=== PATIENT | male | born 1995 | race African-American/Black ===

== ENCOUNTER 2017-03-30 17:37 | Emergency (ER) | payer BC ==
[~2017-03-30] VITALS: Ht 172.7 cm; Wt 113.6 kg
[2017-03-30 17:39] VITALS: TEMP 98.5
[2017-03-30 18:29] VITALS: BP 138/73; PULSE 74
== END 2017-03-30 18:29 | disposition home or self-care (01) ==
LOC: COL.ER 17:37
DX: S83.91XA Sprain of unspecified site of right knee, initial encounter (principal); X50.1XXA Overexertion from prolonged static or awkward postures, initial encounter; Y93.67 Activity, basketball

== ENCOUNTER 2017-05-07 11:09 | Emergency (ER) | payer BC ==
[~2017-05-07] VITALS: Ht 172.7 cm; Wt 123.6 kg
[2017-05-07 11:11] VITALS: BP 128/76
[2017-05-07] MEDS ORDERED: PROAIR HFA0.09 MG/AC IH ×2 (11:13→12:15)
[2017-05-07] MEDS ORDERED: TAMIFLU 75MG75 MG PO (12:15)
[2017-05-07 12:16] VITALS: TEMP 101.1
[2017-05-07 12:30] VITALS: PULSE 104
== END 2017-05-07 12:31 | disposition home or self-care (01) ==
LOC: COL.ER 11:09
DX: J10.1 Influenza due to other identified influenza virus with other respiratory manifestations (principal); J45.909 Unspecified asthma, uncomplicated

== ENCOUNTER 2017-11-13 17:00 | Emergency (ER) | payer BC ==
[~2017-11-13] VITALS: Ht 172.7 cm; Wt 113.6 kg
[~2017-11-13 17:00] MED LIST: PROAIR HFA0.09 MG/AC IH; TAMIFLU 75MG75 MG PO
[2017-11-13 17:23] VITALS: BP 124/67; TEMP 98.2
[2017-11-13 20:44] LABS: BASO % 0.2 % (0.0-2.0); EOS # 0.3 (0.0-0.7); EOS % 2.5 % (0-4.0); GRAN # 6.3 (1.4-6.5); GRAN % 62.6 % (42.2-75.2); HEMATOCRIT 47.7 % (42.0-52.0); HEMOGLOBIN 15.9 g/dl (13.5-18.0); LYMPH # 2.6 (1.2-3.4); LYMPH % 25.9 % (20.0-51.0); MEAN CELL VOLUME 91 fl (80.0-100.0); MEAN CORPUSCULAR HEMOGLOBIN 30 pg (27.0-31.0); MEAN CORPUSCULAR HGB CONC 33 g/dl (33.0-37.0); MEAN PLATELET VOLUME 10.1 fl (7.4-10.4); MONO # 0.9 (0.1-0.6); MONO % 8.6 % (1.7-9.3); PLATELET COUNT 277 K/mm3 (130-400); RED BLOOD COUNT 5.24 M/mm3 (4.20-5.60); REDCELL DISTRIBUTION WIDTH-CV 12.1 % (11.5-14.5)
[2017-11-13 20:48] LABS: ALBUMIN 4.5 gm/dL (3.5-5.0); BILIRUBIN,TOTAL 0.7 mg/dL (0.0-1.0); CALCIUM 9.3 mg/dL (8.4-10.2); CREATININE, serum 1.1 mg/dL (0.66-1.25); POTASSIUM 3.6 mmol/L (3.4-5.0); TOTAL PROTEIN 8.4 gm/dL (6.4-8.2)
[2017-11-13 21:18] LABS: THYROID STIMULATING HORMONE 1.13 uIU/mL (0.465-4.680)
[2017-11-13] MEDS ORDERED: ZITHROMAX Z PA250 MG PO (21:24)
[2017-11-13] MEDS ORDERED: VENTOLIN0.09 MG IH (21:30)
[2017-11-13 21:46] VITALS: PULSE 66
== END 2017-11-13 21:44 | disposition home or self-care (01) ==
LOC: COL.ER 17:00
PROVIDERS: Physician Assistant
DX: J18.9 Pneumonia, unspecified organism (principal); J45.909 Unspecified asthma, uncomplicated

== ENCOUNTER 2018-01-02 21:45 | Emergency (ER) | payer BC ==
[~2018-01-02] VITALS: Ht 172.7 cm; Wt 113.6 kg
[~2018-01-02 21:45] MED LIST changes: +VENTOLIN0.09 MG IH; +ZITHROMAX Z PA250 MG PO
[2018-01-02 21:51] VITALS: TEMP 98.9
[2018-01-02 22:38] VITALS: BP 115/68
[2018-01-02 23:03] LABS: BASO % 0.3 % (0.0-2.0); EOS # 0.5 (0.0-0.7); EOS % 4.8 % (0-4.0); GRAN # 5.5 (1.4-6.5); GRAN % 59.1 % (42.2-75.2); LYMPH # 2.2 (1.2-3.4); LYMPH % 23.7 % (20.0-51.0); MEAN CELL VOLUME 97 fl (80.0-100.0); MEAN CORPUSCULAR HGB CONC 33 g/dl (33.0-37.0); MEAN PLATELET VOLUME 9.1 fl (7.4-10.4); MONO # 1.1 (0.1-0.6); MONO % 11.8 % (1.7-9.3); PLATELET COUNT 230 K/mm3 (130-400); RED BLOOD COUNT 2.82 M/mm3 (4.20-5.60); REDCELL DISTRIBUTION WIDTH-CV 14.2 % (11.5-14.5)
[2018-01-02 23:05] LABS: HEMATOCRIT 27.4 % (42.0-52.0); HEMOGLOBIN 9.1 g/dl (13.5-18.0); MEAN CORPUSCULAR HEMOGLOBIN 32 pg (27.0-31.0)
[2018-01-02 23:12] LABS: ALBUMIN 3.6 gm/dL (3.5-5.0); BILIRUBIN,TOTAL 1.4 mg/dL (0.0-1.0); CALCIUM 8.5 mg/dL (8.4-10.2); CREATININE, serum 0.99 mg/dL (0.66-1.25); POTASSIUM 3.6 mmol/L (3.4-5.0); TOTAL PROTEIN 6.9 gm/dL (6.4-8.2)
[2018-01-03 00:19] LABS: INR 1.2 (0.8-3.0); PROTHROMBIN TIME 13.6 SECONDS (9.7-12.8)
[2018-01-03 01:58] VITALS: PULSE 88
== END 2018-01-03 01:58 | disposition home or self-care (01) ==
LOC: COL.ER 21:45
PROVIDERS: Emergency Medicine
DX: D64.9 Anemia, unspecified (principal); R42 Dizziness and giddiness; J45.909 Unspecified asthma, uncomplicated

== ENCOUNTER 2018-01-07 22:59 | Emergency (ER) | payer BC ==
[~2018-01-07] VITALS: Ht 172.7 cm; Wt 113.6 kg
[2018-01-07 23:08] VITALS: TEMP 98.6
[2018-01-07] MEDS ORDERED: NATURAL IRON65 MG (23:15)
[2018-01-07 23:52] LABS: BASO % 0.2 % (0.0-2.0); EOS # 0.1 (0.0-0.7); GRAN % 80.7 % (42.2-75.2); HEMOGLOBIN 11.5 g/dl (13.5-18.0); LYMPH # 1.6 (1.2-3.4); LYMPH % 11.3 % (20.0-51.0); MEAN CELL VOLUME 96 fl (80.0-100.0); MEAN CORPUSCULAR HEMOGLOBIN 31 pg (27.0-31.0); MEAN CORPUSCULAR HGB CONC 33 g/dl (33.0-37.0); MONO # 0.9 (0.1-0.6); MONO % 6.4 % (1.7-9.3); PLATELET COUNT 327 K/mm3 (130-400); RED BLOOD COUNT 3.66 M/mm3 (4.20-5.60); REDCELL DISTRIBUTION WIDTH-CV 13.6 % (11.5-14.5)
[2018-01-08 00:03] LABS: ALBUMIN 3.8 gm/dL (3.5-5.0); BILIRUBIN,TOTAL 0.5 mg/dL (0.0-1.0); CALCIUM 9.3 mg/dL (8.4-10.2); CREATININE, serum 1.16 mg/dL (0.66-1.25); POTASSIUM 3.7 mmol/L (3.4-5.0); TOTAL PROTEIN 7.2 gm/dL (6.4-8.2)
[2018-01-08] MEDS ORDERED: PROTONIX 40MG T40 MG PO (02:37)
[2018-01-08] MEDS ORDERED: ZOFRAN ODT4 MG PO (02:37)
[2018-01-08] MEDS ORDERED: CARAFATE 1GM1 G PO (02:37)
[2018-01-08 02:50] VITALS: BP 116/73; PULSE 82
== END 2018-01-08 02:55 | disposition home or self-care (01) ==
LOC: COL.ER 22:59
PROVIDERS: Emergency Medicine
DX: K29.70 Gastritis, unspecified, without bleeding (principal); D64.9 Anemia, unspecified
CPT/HCPCS: C9113; J2405; J7030; Q9967

== ENCOUNTER 2018-01-11 15:47 | Emergency (ER) | payer BC ==
[~2018-01-11] VITALS: Ht 172.7 cm; Wt 110.5 kg
[~2018-01-11 15:47] MED LIST changes: +CARAFATE 1GM1 G PO; +NATURAL IRON65 MG; +PROTONIX 40MG T40 MG PO; +ZOFRAN ODT4 MG PO
[2018-01-11 15:56] VITALS: TEMP 98.3
[2018-01-11 16:31] LABS: BASO % 0.3 % (0.0-2.0); EOS # 0.2 (0.0-0.7); EOS % 1.7 % (0-4.0); GRAN # 7.2 (1.4-6.5); GRAN % 69.3 % (42.2-75.2); HEMATOCRIT 38.5 % (42.0-52.0); HEMOGLOBIN 12.7 g/dl (13.5-18.0); LYMPH % 19.3 % (20.0-51.0); MEAN CELL VOLUME 95 fl (80.0-100.0); MEAN CORPUSCULAR HEMOGLOBIN 31 pg (27.0-31.0); MEAN CORPUSCULAR HGB CONC 33 g/dl (33.0-37.0); MONO # 0.9 (0.1-0.6); PLATELET COUNT 323 K/mm3 (130-400); RED BLOOD COUNT 4.06 M/mm3 (4.20-5.60); REDCELL DISTRIBUTION WIDTH-CV 13.2 % (11.5-14.5)
[2018-01-11 16:43] LABS: ALBUMIN 4.1 gm/dL (3.5-5.0); BILIRUBIN,TOTAL 0.4 mg/dL (0.0-1.0); C-REACTIVE PROTEIN 0.6 mg/dL (0.0-0.9); CALCIUM 9.1 mg/dL (8.4-10.2); CREATININE, serum 1.08 mg/dL (0.66-1.25); POTASSIUM 3.8 mmol/L (3.4-5.0)
[2018-01-11 16:51] LABS: COLLECTION METHOD CLEAN CATCH
[2018-01-11 16:58] LABS: MUCOUS Present /lpf; PH 7 (5-8); SQUAMOUS EPITHELIAL None Seen /hpf; URINE APPEARANCE Clear; URINE BACTERIA Rare /hpf; URINE BILIRUBIN Negative (NEGATIVE); URINE BLOOD Negative (NEGATIVE); URINE COLOR Yellow; URINE GLUCOSE Negative (NEGATIVE); URINE KETONE Negative (NEGATIVE); URINE LEUKOCYTE ESTERASE Negative (NEGATIVE); URINE NITRATE Negative (NEGATIVE); URINE PROTEIN(semi-quant) 1+ (NEGATIVE); URINE RBC 0-2 /hpf
[2018-01-11 18:04] VITALS: BP 108/52
[2018-01-11] MEDS ORDERED: NORCO 325 MG-51 TAB PO (19:41)
[2018-01-11] MEDS ORDERED: PHENERGAN 25 TA25 MG PO (19:41)
[2018-01-11 20:05] VITALS: PULSE 90
== END 2018-01-11 20:05 | disposition home or self-care (01) ==
LOC: COL.ER 15:47
PROVIDERS: Emergency Medicine
DX: R10.13 Epigastric pain (principal)
CPT/HCPCS: C9113; J2550; J7030

== ENCOUNTER 2018-01-21 17:35 | Emergency (ER) | payer BC ==
[~2018-01-21] VITALS: Ht 172.7 cm; Wt 109.1 kg
[~2018-01-21 17:35] MED LIST changes: +NORCO 325 MG-51 TAB PO; +PHENERGAN 25 TA25 MG PO
[2018-01-21 17:44] VITALS: TEMP 98.7
[2018-01-21 18:21] LABS: COLLECTION METHOD CLEAN CATCH
[2018-01-21 18:23] LABS: BASO % 0.1 % (0.0-2.0); EOS # 0.2 (0.0-0.7); EOS % 1.7 % (0-4.0); GRAN # 8.9 (1.4-6.5); GRAN % 74.3 % (42.2-75.2); HEMATOCRIT 43.6 % (42.0-52.0); LYMPH # 1.9 (1.2-3.4); LYMPH % 15.6 % (20.0-51.0); MEAN CELL VOLUME 96 fl (80.0-100.0); MEAN CORPUSCULAR HEMOGLOBIN 31 pg (27.0-31.0); MEAN CORPUSCULAR HGB CONC 32 g/dl (33.0-37.0); MEAN PLATELET VOLUME 9.2 fl (7.4-10.4); MONO % 7.9 % (1.7-9.3); PLATELET COUNT 317 K/mm3 (130-400); RED BLOOD COUNT 4.54 M/mm3 (4.20-5.60); REDCELL DISTRIBUTION WIDTH-CV 12.4 % (11.5-14.5)
[2018-01-21 18:34] LABS: ALANINE AMINOTRANSFERASE 46 U/L (21-72); ALKALINE PHOSPHATASE 62 U/L (50-136); ANION GAP 7 mmol/L (7-16); AST,SGOT 28 U/L (15-37); BILIRUBIN,TOTAL 0.2 mg/dL (0.0-1.0); BLOOD UREA NITROGEN 13 mg/dL (9-20); CALCIUM 9.1 mg/dL (8.4-10.2); CARBON DIOXIDE 28 mmol/L (22-30); CHLORIDE 104 mmol/L (98-107); CREATININE, serum 1.11 mg/dL (0.66-1.25); GLUCOSE 101 mg/dL (74-106); POTASSIUM 4.1 mmol/L (3.4-5.0); SODIUM 139 mmol/L (137-145); TOTAL PROTEIN 7.7 gm/dL (6.4-8.2)
[2018-01-21 18:36] LABS: PH 7 (5-8); SQUAMOUS EPITHELIAL 0-2 /hpf; URINE APPEARANCE Clear; URINE BACTERIA None Seen /hpf; URINE BILIRUBIN Negative (NEGATIVE); URINE BLOOD Negative (NEGATIVE); URINE COLOR Yellow; URINE GLUCOSE Negative (NEGATIVE); URINE KETONE Negative (NEGATIVE); URINE LEUKOCYTE ESTERASE Negative (NEGATIVE); URINE NITRATE Negative (NEGATIVE); URINE PROTEIN(semi-quant) Negative (NEGATIVE); URINE RBC 0-2 /hpf; URINE UROBILINOGEN Negative (NEGATIVE)
[2018-01-21 18:39] LABS: TRICYCLIC ANTIDEPRESS URINE NEGATIVE
[2018-01-21 18:40] LABS: ACETAMINOPHEN < 10 ug/mL (10-30); ALCOHOL(ethanol),MEDICAL < 10 mg/dL; SALICYLATE < 1.0 mg/dL
[2018-01-22 02:15] VITALS: BP 148/72; PULSE 87
== END 2018-01-22 02:16 | disposition home or self-care (01) ==
LOC: COL.ER 17:35
PROVIDERS: Physician Assistant
DX: R45.851 Suicidal ideations (principal); F32.9 Major depressive disorder, single episode, unspecified; F41.9 Anxiety disorder, unspecified; F12.90 Cannabis use, unspecified, uncomplicated

== ENCOUNTER 2018-01-24 11:01 | Emergency (ER) | payer BC ==
[~2018-01-24] VITALS: Ht 172.7 cm; Wt 113.6 kg
[2018-01-24 11:03] VITALS: TEMP 98.8
[2018-01-24] MEDS ORDERED: ZOLOFT 25MG25 MG PO (11:17)
[2018-01-24 11:26] LABS: BASO % 0.3 % (0.0-2.0); EOS # 0.2 (0.0-0.7); EOS % 2.9 % (0-4.0); GRAN % 65.6 % (42.2-75.2); HEMATOCRIT 43.1 % (42.0-52.0); LYMPH # 1.7 (1.2-3.4); LYMPH % 21.6 % (20.0-51.0); MEAN CELL VOLUME 94 fl (80.0-100.0); MEAN CORPUSCULAR HEMOGLOBIN 31 pg (27.0-31.0); MEAN CORPUSCULAR HGB CONC 33 g/dl (33.0-37.0); MEAN PLATELET VOLUME 9.2 fl (7.4-10.4); MONO # 0.7 (0.1-0.6); MONO % 9.3 % (1.7-9.3); PLATELET COUNT 281 K/mm3 (130-400); RED BLOOD COUNT 4.58 M/mm3 (4.20-5.60); REDCELL DISTRIBUTION WIDTH-CV 12.5 % (11.5-14.5)
[2018-01-24 11:38] LABS: ALANINE AMINOTRANSFERASE 51 U/L (21-72); ALBUMIN 3.9 gm/dL (3.5-5.0); ALKALINE PHOSPHATASE 62 U/L (50-136); ANION GAP 5 mmol/L (7-16); AST,SGOT 28 U/L (15-37); BILIRUBIN,TOTAL 0.4 mg/dL (0.0-1.0); BLOOD UREA NITROGEN 13 mg/dL (9-20); CALCIUM 9.2 mg/dL (8.4-10.2); CARBON DIOXIDE 29 mmol/L (22-30); CHLORIDE 106 mmol/L (98-107); CREATININE, serum 0.95 mg/dL (0.66-1.25); GLUCOSE 94 mg/dL (74-106); LIPASE 81 U/L (23-300); POTASSIUM 4.3 mmol/L (3.4-5.0); SODIUM 140 mmol/L (137-145); TOTAL PROTEIN 7.6 gm/dL (6.4-8.2)
[2018-01-24 11:42] LABS: ACETAMINOPHEN < 10 ug/mL (10-30); ALCOHOL(ethanol),MEDICAL < 10 mg/dL; SALICYLATE < 1.0 mg/dL
[2018-01-24 11:52] LABS: COLLECTION METHOD CLEAN CATCH
[2018-01-24 11:58] LABS: MUCOUS Present /lpf; PH 7 (5-8); SQUAMOUS EPITHELIAL None Seen /hpf; URINE APPEARANCE Clear; URINE BACTERIA None Seen /hpf; URINE BILIRUBIN Negative (NEGATIVE); URINE BLOOD Negative (NEGATIVE); URINE COLOR Yellow; URINE GLUCOSE Negative (NEGATIVE); URINE KETONE Negative (NEGATIVE); URINE LEUKOCYTE ESTERASE Negative (NEGATIVE); URINE NITRATE Negative (NEGATIVE); URINE PROTEIN(semi-quant) Negative (NEGATIVE); URINE RBC 0-2 /hpf; URINE UROBILINOGEN Negative (NEGATIVE)
[2018-01-24 12:12] LABS: TRICYCLIC ANTIDEPRESS URINE NEGATIVE
[2018-01-24 16:34] VITALS: BP 118/62; PULSE 79
== END 2018-01-24 16:34 | disposition home or self-care (01) ==
LOC: COL.ER 11:01
PROVIDERS: Emergency Medicine
DX: R45.851 Suicidal ideations (principal); F17.210 Nicotine dependence, cigarettes, uncomplicated; F32.9 Major depressive disorder, single episode, unspecified

== ENCOUNTER 2018-02-02 23:50 | Emergency (ER) | payer BC ==
[~2018-02-02] VITALS: Ht 172.7 cm; Wt 113.6 kg
[~2018-02-02 23:50] MED LIST changes: +ZOLOFT 25MG25 MG PO
[2018-02-03 00:04] VITALS: TEMP 98.3
[2018-02-03] MEDS ORDERED: ZYPREXA2.5 MG (00:46)
[2018-02-03 01:19] LABS: BASO % 0.2 % (0.0-2.0); EOS # 0.4 (0.0-0.7); EOS % 3.9 % (0-4.0); GRAN # 5.5 (1.4-6.5); GRAN % 57.5 % (42.2-75.2); HEMATOCRIT 39.8 % (42.0-52.0); HEMOGLOBIN 13.1 g/dl (13.5-18.0); LYMPH # 2.6 (1.2-3.4); LYMPH % 27.2 % (20.0-51.0); MEAN CELL VOLUME 94 fl (80.0-100.0); MEAN CORPUSCULAR HEMOGLOBIN 31 pg (27.0-31.0); MEAN CORPUSCULAR HGB CONC 33 g/dl (33.0-37.0); MEAN PLATELET VOLUME 9.5 fl (7.4-10.4); PLATELET COUNT 266 K/mm3 (130-400); RED BLOOD COUNT 4.23 M/mm3 (4.20-5.60); REDCELL DISTRIBUTION WIDTH-CV 12.2 % (11.5-14.5)
[2018-02-03 01:25] LABS: ALANINE AMINOTRANSFERASE 59 U/L (21-72); ALBUMIN 3.7 gm/dL (3.5-5.0); ALKALINE PHOSPHATASE 57 U/L (50-136); ANION GAP 4 mmol/L (7-16); AST,SGOT 33 U/L (15-37); BILIRUBIN,TOTAL 0.4 mg/dL (0.0-1.0); BLOOD UREA NITROGEN 15 mg/dL (9-20); CALCIUM 8.9 mg/dL (8.4-10.2); CARBON DIOXIDE 29 mmol/L (22-30); CHLORIDE 106 mmol/L (98-107); CREATININE, serum 0.94 mg/dL (0.66-1.25); GLUCOSE 86 mg/dL (74-106); POTASSIUM 3.8 mmol/L (3.4-5.0); SODIUM 138 mmol/L (137-145)
[2018-02-03 01:35] LABS: ALCOHOL(ethanol),MEDICAL < 10 mg/dL
[2018-02-03 01:56] LABS: COLLECTION METHOD CLEAN CATCH
[2018-02-03 02:07] LABS: AMORPHOUS CRYSTAL Present /uL; PH 6 (5-8); SQUAMOUS EPITHELIAL 0-2 /hpf; URINE APPEARANCE Cloudy; URINE BACTERIA None Seen /hpf; URINE BILIRUBIN Negative (NEGATIVE); URINE BLOOD Negative (NEGATIVE); URINE COLOR Yellow; URINE GLUCOSE Negative (NEGATIVE); URINE KETONE Negative (NEGATIVE); URINE LEUKOCYTE ESTERASE Negative (NEGATIVE); URINE NITRATE Negative (NEGATIVE); URINE PROTEIN(semi-quant) Negative (NEGATIVE); URINE RBC 0-2 /hpf
[2018-02-03 02:09] LABS: ACETAMINOPHEN < 10 ug/mL (10-30); SALICYLATE < 1.0 mg/dL
[2018-02-03 02:43] LABS: TRICYCLIC ANTIDEPRESS URINE NEGATIVE
[2018-02-03 04:58] VITALS: BP 113/89; PULSE 85
== END 2018-02-03 04:58 | disposition home or self-care (01) ==
LOC: COL.ER 23:50
PROVIDERS: Emergency Medicine; Physician Assistant
DX: F32.9 Major depressive disorder, single episode, unspecified (principal); R45.851 Suicidal ideations; J45.909 Unspecified asthma, uncomplicated; Z98.890 Other specified postprocedural states

== ENCOUNTER 2018-02-09 17:29 | Emergency (ER) | payer BC ==
[~2018-02-09] VITALS: Ht 172.7 cm; Wt 113.6 kg
[~2018-02-09 17:29] MED LIST changes: +ZYPREXA2.5 MG
[2018-02-09 17:35] VITALS: BP 141/78; TEMP 97.7
[2018-02-09 18:18] LABS: BASO % 0.2 % (0.0-2.0); EOS # 0.1 (0.0-0.7); EOS % 0.7 % (0-4.0); GRAN # 10.9 (1.4-6.5); GRAN % 79.4 % (42.2-75.2); HEMATOCRIT 45.2 % (42.0-52.0); HEMOGLOBIN 15.1 g/dl (13.5-18.0); LYMPH # 1.7 (1.2-3.4); LYMPH % 12.5 % (20.0-51.0); MEAN CELL VOLUME 93 fl (80.0-100.0); MEAN CORPUSCULAR HEMOGLOBIN 31 pg (27.0-31.0); MEAN CORPUSCULAR HGB CONC 33 g/dl (33.0-37.0); MEAN PLATELET VOLUME 9.4 fl (7.4-10.4); MONO # 0.9 (0.1-0.6); MONO % 6.8 % (1.7-9.3); PLATELET COUNT 311 K/mm3 (130-400); RED BLOOD COUNT 4.87 M/mm3 (4.20-5.60)
[2018-02-09 18:28] LABS: ALANINE AMINOTRANSFERASE 70 U/L (21-72); ALBUMIN 4.1 gm/dL (3.5-5.0); ALKALINE PHOSPHATASE 66 U/L (50-136); ANION GAP 5 mmol/L (7-16); AST,SGOT 32 U/L (15-37); BILIRUBIN,TOTAL 0.2 mg/dL (0.0-1.0); BLOOD UREA NITROGEN 13 mg/dL (9-20); C-REACTIVE PROTEIN < 0.5 mg/dL (0.0-0.9); CALCIUM 9.2 mg/dL (8.4-10.2); CARBON DIOXIDE 29 mmol/L (22-30); CHLORIDE 106 mmol/L (98-107); CREATININE, serum 1.11 mg/dL (0.66-1.25); GLUCOSE 93 mg/dL (74-106); LIPASE 124 U/L (23-300); POTASSIUM 4.3 mmol/L (3.4-5.0); SODIUM 140 mmol/L (137-145); TOTAL PROTEIN 7.9 gm/dL (6.4-8.2)
[2018-02-09 19:00] LABS: COLLECTION METHOD CLEAN CATCH
[2018-02-09 19:06] LABS: MUCOUS Present /lpf; PH 6 (5-8); SQUAMOUS EPITHELIAL 0-2 /hpf; URINE APPEARANCE Clear; URINE BACTERIA None Seen /hpf; URINE BILIRUBIN Negative (NEGATIVE); URINE BLOOD Negative (NEGATIVE); URINE COLOR Yellow; URINE GLUCOSE Negative (NEGATIVE); URINE KETONE Negative (NEGATIVE); URINE LEUKOCYTE ESTERASE Negative (NEGATIVE); URINE NITRATE Negative (NEGATIVE); URINE PROTEIN(semi-quant) Negative (NEGATIVE); URINE RBC 0-2 /hpf; URINE UROBILINOGEN Negative (NEGATIVE)
[2018-02-09] MEDS ORDERED: ZOFRAN 4MG T4 MG/TAB PO (19:56)
[2018-02-09 20:36] VITALS: PULSE 89
== END 2018-02-09 20:36 | disposition home or self-care (01) ==
LOC: COL.ER 17:29
PROVIDERS: Emergency Medicine
DX: G89.29 Other chronic pain (principal); R10.9 Unspecified abdominal pain
CPT/HCPCS: J1170; J2405; J7030; Q9967